=== PATIENT | male | born 1960 ===

== ENCOUNTER 2020-05-15 10:00 | Day surgery (SDC) | payer OTHER | END 2020-05-15 16:42 | disposition home or self-care (01) | LOC: CIR.AMB 10:00 | PROVIDERS: ATTEND Orthopaedic Surgery | DX: M75.112 Incomplete rotator cuff tear or rupture of left shoulder, not specified as traumatic (principal); Z20.822 Contact with and (suspected) exposure to COVID-19 ==

== ENCOUNTER 2020-08-15 06:16 | Outpatient (CLI) | payer OTHER | END 2020-08-15 06:17 | disposition home or self-care (01) | LOC: LAB 06:16 | PROVIDERS: ATTEND Urology | DX: R97.21 Rising PSA following treatment for malignant neoplasm of prostate (principal); N26.1 Atrophy of kidney (terminal) ==